=== PATIENT | female | born 1950 | race American Indian/Alaskan Native ===

== ENCOUNTER 2018-03-10 17:33 | Inpatient (IN) | payer MEDICARE, OTHER ==
[2018-03-10 17:41] VITALS: BMI 27.6
[2018-03-10 18:31] LABS: VENOUS BLOOD GAS BASE EXCESS 6.4 mmol/L (0.0-2.0); VENOUS BLOOD GAS PCO2 45 mmHg (40-60); VENOUS BLOOD GAS PO2 21 mm/Hg (30-55); VENOUS BLOOD PH 7.45 (7.32-7.43)
[2018-03-10 18:31] LABS: BASO # 0.2 K/uL (0.0-0.2); BASO % 1.1 % (0.0-2.0); LYMPH # 1.8 K/uL (1.0-4.3); MEAN CELL VOLUME 87.8 fL (81.0-99.0); MEAN CORPUSCULAR HEMOGLOBIN 30.6 pg (27.0-31.0); MEAN CORPUSCULAR HGB CONC 34.8 g/dL (33.0-37.0); MEAN PLATELET VOLUME 9.7 fL (7.2-11.7); MONO # 1.4 K/uL (0.0-0.8); MONO % 9.3 % (0.0-10.0); NEUT # 11.8 K/uL (1.8-7.0); NEUT % 77.6 % (50.0-75.0); NRBC % 0.1 % (0.0-2.0); RBC 3.92 Mil/uL (3.80-5.20); RED CELL DISTRIBUTION WIDTH 13.5 % (11.5-14.5); WHITE BLOOD COUNT 15.2 K/uL (4.8-10.8)
[2018-03-10 18:44] LABS: ALB/GLOB RATIO 1.1 (1.0-2.1); ALBUMIN 4.1 g/dL (3.5-5.0); ALT/SGPT 25 U/L (9-52); AST/SGOT 22 U/L (14-36); BLOOD UREA NITROGEN 23 mg/dL (7-17); CALCIUM 9.3 mg/dl (8.6-10.4); GFR NON-AFRICAN AMERICAN 40
[2018-03-10 18:47] LABS: URINE CLARITY HAZY (Clear); URINE COLOR AMBER (YELLOW); URINE GLUCOSE (UA) NEGATIVE (Normal)
[2018-03-10 18:48] LABS: URINE BILIRUBIN NEGATIVE (NEGATIVE); URINE BLOOD NEGATIVE (NEGATIVE); URINE PROTEIN 2+ mg/dL (NEGATIVE)
[2018-03-10 18:49] LABS: SQUAMOUS EPITHIAL 7 /hpf (0-5); URINE BACTERIA MANY (<OCC); URINE LEUKOCYTE ESTERASE TRACE Leu/uL (Negative)
[2018-03-10 18:55] LABS: B-TYPE NATRIURETIC PEPTIDE 475 pg/mL (0-900)
[2018-03-10] MEDS ORDERED: Azithromycin 500 MG in Sodium Chloride 0.9% 250 ML IV STA (19:13)
[2018-03-10] MEDS ORDERED: cefTRIAXone IV 1 gm in Dextros 50 ML IV ONE (19:13)
--- NOTE | 2018-03-10 19:20 | C.PDOC ---
History Of Present Illness 68 year old female presents to the ED for evaluation of productive cough which began 3 days ago. Patient also reports malaise and states she had a fever today. Patient denies shortness of breath, nausea, vomiting. Time Seen by Provider: 03/10/18 18:11 Chief Complaint (Nursing): Cough, Cold, Congestion History Per: Patient History/Exam Limitations: no limitations Onset/Duration Of Symptoms: Days (3) Current Symptoms Are (Timing): Still Present Associated Symptoms: Fever, Productive Cough Additional History Per: Patient Past Medical History Reviewed: Historical Data, Nursing Documentation, Vital Signs Vital Signs: Last Vital Signs Temp 98.6 F 03/10/18 22:00 Pulse 86 03/10/18 22:00 Resp 20 03/10/18 22:00 BP 125/76 03/10/18 22:00 Pulse Ox 97 03/10/18 22:06 - Medical History PMH: Diabetes, HTN, Hypercholesterolemia Denies: Chronic Kidney Disease Surgical History: No Surg Hx - [facility] Procedures CATARAC PHACOEMULS/ASPIR (04/03/14) INSERT LENS AT CATAR EXT (04/03/14) Family History: States: Unknown Family Hx - Social History Hx Tobacco Use: No Hx Alcohol Use: No Hx Substance Use: No - Immunization History Hx Tetanus Toxoid Vaccination: No Hx Influenza Vaccination: No Hx Pneumococcal Vaccination: No Review Of Systems Constitutional: Positive for: Fever, Malaise Respiratory: Positive for: Cough, Sputum. Negative for: Shortness of Breath Gastrointestinal: Negative for: Nausea, Vomiting Physical Exam - Physical Exam Appears: Non-toxic, No Acute Distress Skin: Normal Color, Warm, Dry Head: Atraumatic, Normacephalic Eye(s): bilateral: Normal Inspection Oral Mucosa: Moist Throat: Normal, No Erythema, No Exudate Neck: Supple Chest: Symmetrical, No Deformity, No Tenderness Cardiovascular: Rhythm Regular, No Murmur Respiratory: Normal Breath Sounds, No Rales, No Rhonchi, No Wheezing, No Other ( egophony ) Extremity: Normal ROM, Capillary Refill (less than 2 seconds ) Neurological/Psych: Oriented x3, Normal Speech, Normal Cognition ED Course And Treatment - Laboratory Results Result Diagrams: 03/10/18 18:26 03/10/18 18:26 Lab Interpretation: Abnormal (lacate neg.) ECG: Interpreted By Me ECG Rhythm: Sinus Rhythm ECG Interpretation: Normal Rate From EC O2 Sat by Pulse Oximetry: 97 (on RA) Pulse Ox Interpretation: Normal - Radiology CXR: Interpreted by Me CXR Interpretation: Yes: Infiltrates (+RUL) Reevaluation Time: 19:19 Reassessment Condition: Improved - Physician Consult Information Outcome Of Conversation: 1914: d/w Dr. Leyva- Medicine [employer]- OK to admit Medical Decision Making Medical Decision Making: clear lungs bilaterally +RUL PNA on CXR Disposition Doctor Will See Patient In The: Hospital Counseled Patient/Family Regarding: Studies Performed, Diagnosis - Disposition Disposition: HOSPITALIZED Disposition Time: 19:20 Condition: GOOD - Clinical Impression Clinical Impression: Pneumonia - Scribe Statement The provider has reviewed the documentation as recorded by the Scribe (Sarah Mccallum) Provider Attestation: All medical record entries made by the Scribe were at my direction and personally dictated by me. I have reviewed the chart and agree that the record accurately reflects my personal performance of the history, physical exam, medical decision making, and the department course for this patient. I have also personally directed, reviewed, and agree with the discharge instructions and disposition.
[2018-03-10] MEDS ORDERED: Azithromycin 500mg/250ML NS 500 MG/250 ML BAG IVPB ONE (19:37)
[2018-03-10] MEDS ORDERED: cefTRIAXone IV 1 gm in Dextros 50 ML IVPB ONE (19:37)
[2018-03-10] MEDS ORDERED: CARVEDILOL PO SCH (22:00)
[2018-03-10] MEDS: (Novolin R) Insulin Human Regular 100 units/ml vial SC SCH (22:19)
[2018-03-11] MEDS: (Novolin R) Insulin Human Regular 100 units/ml vial SC SCH ×4 (08:39→21:08)
[2018-03-11] MEDS: guaiFENesin 200 mg/10 ml Syrup UD PO PRN (08:40)
--- NOTE | 2018-03-11 09:11 | RAD ---
Date of service: 03/10/2018 HISTORY: SOB COMPARISON: Chest radiographs 03/03/2014. TECHNIQUE: Chest PA and lateral FINDINGS: LUNGS: Masslike infiltrate medial right apex, cephalad to the azygos vein abutting the right mediastinum. PLEURA: No significant pleural effusion identified. No pneumothorax apparent. CARDIOVASCULAR: Normal. OSSEOUS STRUCTURES: No significant abnormalities. VISUALIZED UPPER ABDOMEN: Normal. OTHER FINDINGS: None. IMPRESSION: Interval masslike infiltrate medial right apex. No pleural effusion or other interval change throughout the cardiopulmonary anatomy. Consider follow-up chest CT with contrast for added characterization.
[2018-03-11] MEDS: GlipiZIDE 10 mg SR Tab PO SCH ×2 (09:30→17:30)
[2018-03-11] MEDS: Enoxaparin 40 mg Syringe SC SCH (09:30)
[2018-03-11] MEDS: Azithromycin 500 MG in Sodium Chloride 0.9% 250 ML IVPB SCH (10:00)
--- NOTE | 2018-03-11 23:27 | CP.PCM.HP ---
Past Patient History - Infectious Disease Hx of Infectious Diseases: None - Past Medical History & Family History Past Medical History?: Yes - Past Social History Smoking Status: Never Smoked - CARDIAC Hx Cardiac Disorders: Yes Hx Hypercholesterolemia: Yes Hx Hypertension: Yes - PULMONARY Hx Respiratory Disorders: No - NEUROLOGICAL Hx Neurological Disorder: No - HEENT Hx HEENT Problems: Yes Hx Cataracts: Yes (SURGICALLY REMOVED) - RENAL Hx Chronic Kidney Disease: No - ENDOCRINE/METABOLIC Hx Endocrine Disorders: Yes Hx Diabetes Mellitus Type 2: Yes - HEMATOLOGICAL/ONCOLOGICAL Hx Blood Disorders: No - INTEGUMENTARY Hx Dermatological Problems: No - MUSCULOSKELETAL/RHEUMATOLOGICAL Hx Falls: No - GASTROINTESTINAL Hx Gastrointestinal Disorders: No - GENITOURINARY/GYNECOLOGICAL Hx Genitourinary Disorders: No - PSYCHIATRIC Hx Substance Use: No - SURGICAL HISTORY Hx Surgeries: Yes Hx Cataract Extraction: Yes Hx Eye Surgery: Yes Hx Hysterectomy: Yes - ANESTHESIA Hx Anesthesia: Yes Hx Anesthesia Reactions: No Hx Malignant Hyperthermia: No Meds Allergies/Adverse Reactions: Allergies Allergy/AdvReac Type Severity Reaction Status Date / Time No Known Allergies Allergy Verified 03/10/18 18:01 Results - Vital Signs Recent Vital Signs: Last Vital Signs Temp 98.4 F 03/11/18 15:00 Pulse 86 03/11/18 16:04 Resp 20 03/11/18 15:00 BP 106/60 03/11/18 15:00 Pulse Ox 96 03/11/18 15:00 - Labs Result Diagrams: 03/10/18 18:26 03/10/18 18:26 Labs: Laboratory Results - last 24 hr 03/10/18 03/11/18 03/11/18 22:17 06:32 12:38 POC Glucose (mg/dL) 188 H 194 H 223 H 03/11/18 03/11/18 16:12 21:04 POC Glucose (mg/dL) 108 159 H
[2018-03-12] MEDS: (Novolin R) Insulin Human Regular 100 units/ml vial SC SCH ×4 (08:05→21:54)
[2018-03-12] MEDS: Azithromycin 500 MG in Sodium Chloride 0.9% 250 ML IVPB SCH (09:36)
[2018-03-12] MEDS: guaiFENesin 200 mg/10 ml Syrup UD PO PRN ×2 (09:37→21:57)
[2018-03-12] MEDS: Enoxaparin 40 mg Syringe SC SCH (09:37)
[2018-03-12] MEDS: GlipiZIDE 10 mg SR Tab PO SCH ×3 (09:38→18:28)
--- NOTE | 2018-03-12 10:00 | HP ---
Copied To: Xavier Leyva MD Attending MD: Xavier Leyva MD CHIEF COMPLAINT: Fever, weakness, and cough. HISTORY OF PRESENT ILLNESS: This is a 68-year-old -[place] female with history of diabetes, hypertension, and hyperlipidemia. She is compliant with her diet, medication, and followup. She denies any history of chronic kidney disease. She denies any history of coronary artery disease. She is a nonsmoker, who came in because for last three days she is having cough, congestion, shortness of breath, fever, chills, ____ tiredness, anorexia, malaise, and fatigue. She feels weak, dizzy and she is having nausea. No vomiting. She has generalized tiredness, anorexia, malaise, and fatigue. She denies any abdominal pain, nausea, or vomiting. She denies any history of joint pain, hip pain, or leg pain. She denies any tingling, numbness, or paresthesias of the leg. She denies any history of sore throat or runny nose. She denies any sneezing, itchy eyes, or itchy nose. She denies any skin rash. She denies any back pain. She denies any history of prior episodes like this. She denies any history of paroxysmal nocturnal dyspnea or orthopnea. PAST MEDICAL HISTORY: Diabetes, hypertension, and hyperlipidemia. SOCIAL HISTORY: Nonsmoker and non-ETOH user. CURRENT MEDICATIONS AT HOME: She takes Diovan, metformin, Glucotrol XL, Coreg, Lipitor, and Norvasc. PHYSICAL EXAMINATION: GENERAL: An elderly female in no acute distress. She is feeling much better. VITAL SIGNS: BP 106/60, pulse 88, respiratory rate 20, and temperature 98.4. SKIN: Dry. Poor turgor. HEENT: Atraumatic and normocephalic. Negative pallor. Negative jaundice. Extraocular movements are intact. NECK: Supple. No JVD. No lymph node. No thyromegaly. No carotid bruit. CHEST: Chest wall: Bilaterally symmetrical expansion. LUNGS: Bilateral crackles, more in the left middle base. CARDIOVASCULAR SYSTEM: S1, S2, regular. ABDOMEN: Soft and nontender. Bowel sounds are positive. GENITOURINARY: Rectal: No masses. No bleed. Genital: Normal. PELVIC: No tenderness. No discharge. EXTREMITIES: No clubbing, cyanosis, or edema. CENTRAL NERVOUS SYSTEM: Awake, alert, and oriented x3. Cranial nerves II-XII are normal. Power 5/5 x4. Plantars are downgoing. ASSESSMENT: 1. Pneumonia. 2. Hypertension. 3. Diabetes. PLAN: Admit. Detailed orders written. Seen and examined. Xavier Leyva MD
[2018-03-12 16:36] VITALS: RESP 20
--- NOTE | 2018-03-12 22:21 | CP.PCM.PN ---
Objective - Vital Signs/Intake and Output Vital Signs (last 24 hours): Temp Pulse Resp BP Pulse Ox 98.2 F 74 20 111/62 95 03/12/18 15:35 03/12/18 18:00 03/12/18 15:35 03/12/18 15:35 03/12/18 15:35 Intake and Output: 03/12/18 03/13/18 18:59 06:59 Intake Total 1440 Output Total 0 Balance 1440 - Medications Medications: Current Medications Acetaminophen (Tylenol 325mg Tab) 650 mg PO Q6 PRN PRN Reason: Fever >100.4 F Last Admin: 03/11/18 09:27 Dose: 650 mg Amlodipine Besylate (Norvasc) 5 mg PO DAILY [facility] Carvedilol (Coreg) 6.25 mg PO BID [facility] Last Admin: 03/12/18 18:28 Dose: 6.25 mg Enoxaparin Sodium (Lovenox) 40 mg SC DAILY [facility] Last Admin: 03/12/18 09:37 Dose: 40 mg Glipizide (Glucotrol Xl) 10 mg PO BID [facility] Last Admin: 03/12/18 18:28 Dose: 10 mg Guaifenesin (Robitussin) 200 mg PO Q4H PRN PRN Reason: Cough and congestion Last Admin: 03/12/18 21:57 Dose: 200 mg Ceftriaxone Sodium 1 gm/ (Sodium Chloride) 100 mls @ 100 mls/hr IVPB DAILY [facility] PRN Reason: Protocol Last Admin: 03/12/18 09:35 Dose: 100 mls/hr Azithromycin 500 mg/ Sodium (Chloride) 250 mls @ 250 mls/hr IVPB DAILY [facility] PRN Reason: Protocol Last Admin: 03/12/18 09:36 Dose: 250 mls/hr Insulin Human Regular (Novolin R) 0 unit SC ACHS [facility] PRN Reason: Protocol Last Admin: 03/12/18 21:54 Dose: Not Given Losartan Potassium (Cozaar) 50 mg PO DAILY [facility] Last Admin: 03/12/18 09:38 Dose: 50 mg Metformin HCl (Glucophage) 1,000 mg PO BID [facility] Last Admin: 03/12/18 18:27 Dose: 1,000 mg Rosuvastatin Calcium (Crestor) 10 mg PO HS [facility] Last Admin: 03/12/18 21:57 Dose: 10 mg - Labs Labs: 03/10/18 18:26 03/10/18 18:26
[2018-03-13 02:15] VITALS: O2SAT 96
--- NOTE | 2018-03-13 02:16 | PN ---
Copied To: Xavier Leyva MD Attending MD: Xavier Leyva MD DATE: 03/12/2018 SUBJECTIVE: The patient is feeling better. Afebrile. No shortness of breath. PHYSICAL EXAMINATION: VITAL SIGNS: BP 111/62, pulse 71, respiratory rate 20, temperature 98.2. LUNGS: Bilateral crackles. CARDIOVASCULAR SYSTEM: S1, S2 are regular. ABDOMEN: Soft. ASSESSMENT: 1. Pneumonia. 2. Hypertension. PLAN: Continue antibiotics. Monitor vitals, the patient. Xavier Leyva MD
[2018-03-13 06:50] LABS: HEMOGLOBIN 11.3 g/dL (11.0-16.0); MEAN CELL VOLUME 87.8 fL (81.0-99.0); MEAN CORPUSCULAR HEMOGLOBIN 30.2 pg (27.0-31.0); MEAN CORPUSCULAR HGB CONC 34.4 g/dL (33.0-37.0); RBC 3.73 Mil/uL (3.80-5.20); RED CELL DISTRIBUTION WIDTH 13.8 % (11.5-14.5); WHITE BLOOD COUNT 8.1 K/uL (4.8-10.8)
[2018-03-13 08:04] VITALS: BP 114/67; PULSE 72; TEMP 98.5
[2018-03-13] MEDS: (Novolin R) Insulin Human Regular 100 units/ml vial SC SCH ×2 (08:34→12:13)
[2018-03-13] MEDS: GlipiZIDE 10 mg SR Tab PO SCH (10:59)
[2018-03-13] MEDS: guaiFENesin 200 mg/10 ml Syrup UD PO PRN (10:59)
[2018-03-13] MEDS: Azithromycin 500 MG in Sodium Chloride 0.9% 250 ML IVPB SCH (10:59)
[2018-03-13] MEDS: Enoxaparin 40 mg Syringe SC SCH (11:00)
[2018-03-13 11:56] LABS: CALCIUM 9.1 mg/dl (8.6-10.4)
--- NOTE | 2018-03-13 13:59 | CT ---
Date of service: 03/13/2018 PROCEDURE: CT Chest without contrast HISTORY: f/u cxr questanable mas COMPARISON: None available. TECHNIQUE: Contiguous axial images were obtained through the chest without intravenous contrast enhancement. Sagittal and coronal reconstructions were performed. Radiation dose (DLP): 485.79 mGy-cm. This CT exam was performed using one or more of the following dose reduction techniques: Automated exposure control, adjustment of the mA and/or kV according to patient size, and/or use of iterative reconstruction technique. FINDINGS: LUNGS: There is a ground-glass opacity and infiltrate involving the medial aspect of the right lung upper lobe associated with small foci of airspace consolidation likely representing pneumonia. The possibility of neoplasm is less likely. The left lung is clear. Small foci of atelectasis at the right lung base are also noted. MEDIASTINUM: Unremarkable thoracic aorta. No aneurysm. Normal sized heart. Main pulmonary artery is mildly enlarged. Mildly enlarged pre jean paul right paratracheal and right hilar lymph nodes are noted. PLEURA: There is a small right pleural effusion BONES: No fracture. No destructive lesion. UPPER ABDOMEN: No evidence of acute pathology in the visualized portion of the upper abdomen. The liver is enlarged. OTHER FINDINGS: None. IMPRESSION: Ground-glass opacities and infiltrate at the right lung upper lobe associated with small foci of airspace consolidation likely representing pneumonia. The possibility of neoplasm is less likely. Follow-up study after treatment is recommended. Trace right pleural effusion likely represent parapneumonic effusion. Mildly enlarged reactive lymph nodes in the right mediastinum.
--- NOTE | 2018-03-13 14:34 | CP.PCM.PN ---
Subjective - Date & Time of Evaluation Date of Evaluation: 03/13/18 Time of Evaluation: 11:00 - Subjective Subjective: Patient seen today states feels better , sob improved , denies any fever, chills , cough, abdominal pain, N/V/ a febrile for 48 hrs Objective - Vital Signs/Intake and Output Vital Signs (last 24 hours): Temp Pulse Resp BP Pulse Ox 98.5 F 72 20 114/67 96 03/13/18 08:03 03/13/18 08:03 03/13/18 08:03 03/13/18 08:03 03/13/18 08:03 - Medications Medications: Current Medications Acetaminophen (Tylenol 325mg Tab) 650 mg PO Q6 PRN PRN Reason: Fever >100.4 F Last Admin: 03/11/18 09:27 Dose: 650 mg Amlodipine Besylate (Norvasc) 5 mg PO DAILY [facility] Last Admin: 03/13/18 10:58 Dose: 5 mg Carvedilol (Coreg) 6.25 mg PO BID [facility] Last Admin: 03/13/18 10:59 Dose: 6.25 mg Enoxaparin Sodium (Lovenox) 40 mg SC DAILY [facility] Last Admin: 03/13/18 11:00 Dose: 40 mg Glipizide (Glucotrol Xl) 10 mg PO BID [facility] Last Admin: 03/13/18 10:59 Dose: 10 mg Guaifenesin (Robitussin) 200 mg PO Q4H PRN PRN Reason: Cough and congestion Last Admin: 03/13/18 10:59 Dose: 200 mg Ceftriaxone Sodium 1 gm/ (Sodium Chloride) 100 mls @ 100 mls/hr IVPB DAILY [facility] PRN Reason: Protocol Last Admin: 03/13/18 11:00 Dose: 100 mls/hr Azithromycin 500 mg/ Sodium (Chloride) 250 mls @ 250 mls/hr IVPB DAILY [facility] PRN Reason: Protocol Last Admin: 03/13/18 10:59 Dose: 250 mls/hr Insulin Human Regular (Novolin R) 0 unit SC ACHS [facility] PRN Reason: Protocol Last Admin: 03/13/18 12:13 Dose: 3 unit Losartan Potassium (Cozaar) 50 mg PO DAILY [facility] Last Admin: 03/13/18 10:59 Dose: 50 mg Metformin HCl (Glucophage) 1,000 mg PO BID [facility] Last Admin: 03/13/18 11:00 Dose: 1,000 mg Rosuvastatin Calcium (Crestor) 10 mg PO HS [facility] Last Admin: 03/12/18 21:57 Dose: 10 mg - Labs Labs: 03/13/18 06:26 03/13/18 11:16 - Constitutional Appears: No Acute Distress - Respiratory Exam Respiratory Exam: Clear to Ausculation Bilateral, NORMAL BREATHING PATTERN - Cardiovascular Exam Cardiovascular Exam: REGULAR RHYTHM, +S1, +S2 Assessment and Plan - Assessment and Plan (Free Text) Assessment: A/P 68 yr old female with pmhx of Diabetes, HTN, Hypercholesterolemia admitted with pneumonia A febrile for 48 hrs blood culture and urine culture negative so far cxr- Interval masslike infiltrate medial right apex. No pleural effusion or other interval change throughout the cardiopulmonary anatomy. Consider follow- up chest CT with contrast for added characterization. CT scan done today - Ground-glass opacities and infiltrate at the right lung upper lobe associated with small foci of airspace consolidation likely representing pneumonia. The possibility of neoplasm is less likely. D/w Dr. Leyva stable for discharge home today and continue augmentin x 5 more days and f/u with Dr. tiwari office in 1 week discharge plan discussed with patient who understands and agrees with plan patient instructed to returns to ED if symptoms returns.
--- NOTE | 2018-03-13 16:51 | CARD ---
APPROVED REPORT Date of service: 03/10/2018 EKG Measurement Heart [id number] <Conclusion> Normal sinus rhythm Minimal voltage criteria for LVH, may be normal variant Nonspecific ST and T wave abnormality Abnormal ECG
--- NOTE | 2018-03-14 23:05 | DS ---
Copied To: Xavier Leyva MD Attending MD: Xavier Leyva MD ADMISSION DIAGNOSIS: Pneumonia. DISCHARGE DIAGNOSIS: Pneumonia. HISTORY OF PRESENT ILLNESS: This is a 68-year-old female with a history of hypertension, diabetes, hyperlipidemia who was admitted with cough, congestion, shortness of breath, fever, chills, rigors, found to have pneumonia. She was treated with antibiotics, stabilized, and discharged. CONDITION UPON DISCHARGE: Stable. CT chest showed right upper lobe infiltrate. WBC 8.1, hemoglobin 11.3, hematocrit 32.8, and platelets 236. Sodium 138, potassium 4.1, chloride 97, bicarb 32, BUN 17, creatinine 1.1, glucose 276. stable. She will be followed up by her PMD on outpatient basis. Xavier Leyva MD
== END 2018-03-13 16:26 | disposition home or self-care (01) | DRG 195 ==
LOC: C.ER 17:33 → C.9E 19:17 → C.6T 21:31
PROVIDERS: ADMIT Internal Medicine; ATTEND Internal Medicine
DX: J18.9 Pneumonia, unspecified organism (principal); I10 Essential (primary) hypertension; E78.5 Hyperlipidemia, unspecified; E11.9 Type 2 diabetes mellitus without complications

== ENCOUNTER 2018-09-15 16:54 | Emergency (ER) | payer MEDICARE, OTHER ==
[2018-09-15 16:54] VITALS: BMI 27.6
[2018-09-15 17:01] VITALS: BP 144/78; PULSE 99; RESP 18; TEMP 98.8; O2SAT 95
--- NOTE | 2018-09-15 17:57 | C.PDOC ---
History Of Present Illness Patient presents to ED c/o diffuse itching on her body since monday. Patient states she was recently started on Losartan as a new medication, however this was 1 1/2 months ago. She denies unsual food intake, new detergents/lotions, known allergens. She also denies rashes, fever, cough, sore throat, runny nose, lip or tongue swelling, sensation of throat closing up. Time Seen by Provider: 09/15/18 17:02 Chief Complaint (Nursing): Abnormal Skin Integrity History Per: Patient History/Exam Limitations: no limitations Onset/Duration Of Symptoms: Days Current Symptoms Are (Timing): Still Present Severity: Mild Past Medical History Reviewed: Historical Data, Nursing Documentation, Vital Signs Vital Signs: Last Vital Signs Temp 98.8 F 09/15/18 16:58 Pulse 99 H 09/15/18 16:58 Resp 18 09/15/18 16:58 BP 144/78 09/15/18 16:58 Pulse Ox 95 09/15/18 16:58 - Medical History PMH: Diabetes, HTN, Hypercholesterolemia - [facility] Procedures CATARAC PHACOEMULS/ASPIR (04/03/14) INSERT LENS AT CATAR EXT (04/03/14) Family History: States: No Known Family Hx - Social History Hx Tobacco Use: No Hx Alcohol Use: Yes Hx Substance Use: No - Immunization History Hx Tetanus Toxoid Vaccination: No Hx Influenza Vaccination: No Hx Pneumococcal Vaccination: No Review Of Systems Constitutional: Positive for: Other (diffuse itching ). Negative for: Fever, Chills ENT: Negative for: Nose Congestion, Mouth Swelling, Throat Pain, Throat Swelling Respiratory: Negative for: Cough, Shortness of Breath Gastrointestinal: Negative for: Nausea, Vomiting Skin: Negative for: Rash Physical Exam - Physical Exam Appears: Well, Non-toxic, No Acute Distress Skin: Normal Color, Warm, Dry, No Rash Head: Normacephalic Eye(s): bilateral: Normal Inspection Oral Mucosa: Moist Tongue: Normal Appearing, No Swelling Lips: Normal Appearing, No Swelling Throat: Normal, No Erythema, No Exudate, No Drooling Cardiovascular: Rhythm Regular Respiratory: Normal Breath Sounds, No Accessory Muscle Use, No Rales, No Rhonchi, No Wheezing Extremity: Normal ROM, No Pedal Edema, No Calf Tenderness Pulses: Left Dorsalis Pedis: Normal, Right Dorsalis Pedis: Normal Neurological/Psych: Oriented x3 ED Course And Treatment O2 Sat by Pulse Oximetry: 95 (RA) Pulse Ox Interpretation: Normal Progress Note: Patient has diffuse pruritis without obvious rash. She reports recent normal blood work done by her PMD, including normal LFTs. Patient given Rx for Claritin and was instructed to follow up with PMD in 1-2 days. She understands she should return to ED if symptoms worsen. Disposition Counseled Patient/Family Regarding: Diagnosis, Need For Followup, Rx Given - Disposition Referrals: Johnna Garcia MD [Medical Doctor] - Disposition: HOME/ ROUTINE Disposition Time: 17:45 Condition: STABLE Additional Instructions: FOLLOW UP WITH YOUR DOCTOR IN 1-2 DAYS USE MEDICATION DAILY NEEDED RETURN TO ER IF SYMPTOMS WORSEN Prescriptions: Loratadine [Claritin] 10 mg PO DAILY PRN #30 tab PRN Reason: Itching / Pruritus Instructions: Itchy Skin Forms: [facility] (Nauruan) Print Language: [email or web address] - Clinical Impression Clinical Impression: Skin pruritus
== END 2018-09-15 17:57 | disposition home or self-care (01) ==
LOC: C.ER 16:54
DX: L29.9 Pruritus, unspecified (principal)